=== PATIENT | female | born 1940 | race Caucasian/White ===

== ENCOUNTER 2020-06-20 07:41 | Observation (INO) | payer MEDICARE ==
[~2020-06-20] VITALS: Ht 157.5 cm; Wt 66.0 kg
[2020-06-20] MEDS ORDERED: ATOR20TA86 PO (07:46)
[2020-06-20] MEDS ORDERED: RIVA20TA PO (07:46)
[2020-06-20] MEDS ORDERED: ASPI-1111 PO (07:46)
[2020-06-20] MEDS ORDERED: LOSA50TA37 PO (07:46)
[2020-06-20 09:07] LABS: BASOPHILS % (AUTO) 0.2 % (0.0-2.0); EOSINOPHILS % (AUTO) 1.6 % (1.0-6.0); HEMATOCRIT 44.4 % (36-46); HEMOGLOBIN 14.9 g/dL (12.0-16.0); LYMPHOCYTES # (AUTO) 1.9 K/uL (1.0-4.8); LYMPHOCYTES % (AUTO) 28.4 % (22.0-44.0); MEAN CORPUSCULAR HGB CONC 33.5 G/dL (31.0-37.0); MEAN CORPUSCULAR VOLUME 95 fL (80-100); MONOCYTES # (AUTO) 0.6 K/uL (0.1-1.0); MONOCYTES % (AUTO) 9.5 % (2.0-9.0); NEUTROPHILS # (AUTO) 4.1 K/uL (1.8-7.7); NEUTROPHILS % (AUTO) 60.3 % (40.0-70.0); PLATELET COUNT (AUTO) 234 K/uL (150-450); RED BLOOD CELL COUNT(AUTO) 4.65 MIL/uL (4.00-5.20); RED CELL DISTRIBUTION WIDTH 13.5 % (11.5-14.5)
[2020-06-20 09:27] LABS: INR 1.1 (0.9-1.1); PROTHROMBIN TIME 11.9 SEC (9.4-11.6)
[2020-06-20 09:31] LABS: APPEARANCE,URINE CLEAR (CLEAR); BILIRUBIN,URINE NEGATIVE (NEGATIVE); GLUCOSE, URINE (UA) NEGATIVE (NEGATIVE); KETONES,URINE NEGATIVE (NEGATIVE); LEUKOCYTE ESTERASE ,URINE MODERATE (NEGATIVE); NITRATE,URINE NEGATIVE (NEGATIVE); OCCULT BLOOD,URINE NEGATIVE (NEGATIVE); PH,URINE 6.5 (5.0-8.0); PROTEIN,URINE NEGATIVE (NEGATIVE); UROBILINOGEN,URINE 0.2 mg/dL (<=1.0)
[2020-06-20 09:53] LABS: CALCIUM, TOTAL 9.3 mg/dL (8.8-10.5); CREATININE 0.94 mg/dL (0.60-1.30); POTASSIUM 4.2 mmol/L (3.5-5.1)
[2020-06-20 09:54] LABS: BACTERIA,URINE None Seen /HPF (None Seen); RBC,URINE None Seen /HPF (0-2); SQUAMOUS EPITHELIAL CELL,UR Moderate /LPF (None Seen)
[2020-06-20 09:59] LABS: ALBUMIN 3.8 g/dL (3.4-5.0); BILIRUBIN,TOTAL 0.7 mg/dL (0.1-1.0); TOTAL PROTEIN, SERUM 7.8 g/dL (6.4-8.2)
[2020-06-20] MEDS ORDERED: IOVERSOL 350 MG/ML 100 ML VIAL ONE (10:55)
[2020-06-20] MEDS ORDERED: SODIUM CHLORIDE 0.9% 100 ML ONE (10:56)
[2020-06-20] MEDS ORDERED: CefTRIAXone 1 GM/DEXTROSE 50 ML IV ONE (14:30)
[2020-06-20] MEDS ORDERED: 0.9% SODIUM CHLORIDE 10 ML SYRINGE IVP PRN (14:30)
[2020-06-20] MEDS ORDERED: ACETAMINOPHEN 325 MG TABLET PO PRN ×2 (14:30→19:15)
[2020-06-20 18:45] VITALS: BP 158/83
[2020-06-20] MEDS ORDERED: HYDROCODONE/ACETAMINOPHEN 5-325 MG TABLET PO PRN (19:15)
[2020-06-20] MEDS ORDERED: ALBUTEROL SULFATE 2.5 MG/0.5 ML NEB SOLUTION NEB PRN (19:15)
[2020-06-20] MEDS ORDERED: IPRATROPIUM BROMIDE 0.5 MG/2.5 ML NEB SOLUTION NEB PRN (19:15)
[2020-06-20] MEDS ORDERED: ONDANSETRON HCL 4 MG/2 ML VIAL IVP PRN (19:15)
[2020-06-20] MEDS ORDERED: CloNIDine HCL 0.1 MG TABLET PO PRN (19:45)
[2020-06-20] MEDS: LOSARTAN POTASSIUM 50 MG TABLET PO SCH (20:20)
[2020-06-20] MEDS ORDERED: RIVAROXABAN 20 MG TABLET PO SCH (20:30)
[2020-06-20] MEDS: RIVAROXABAN 15 MG TABLET PO SCH (21:28)
[2020-06-20] MEDS: DILTIAZEM HCL CD 180 MG ER CAPSULE PO SCH (21:28)
[2020-06-20 23:55] VITALS: BP 128/69
[2020-06-21 04:39] VITALS: BP 135/67
[2020-06-21 06:17] LABS: BASOPHILS % (AUTO) 0.2 % (0.0-2.0); EOSINOPHILS % (AUTO) 2.3 % (1.0-6.0); HEMATOCRIT 42.1 % (36-46); HEMOGLOBIN 14.1 g/dL (12.0-16.0); LYMPHOCYTES # (AUTO) 2.1 K/uL (1.0-4.8); LYMPHOCYTES % (AUTO) 31.7 % (22.0-44.0); MEAN CORPUSCULAR HEMOGLOBIN 32.1 pg (26.0-34.0); MEAN CORPUSCULAR HGB CONC 33.6 G/dL (31.0-37.0); MEAN CORPUSCULAR VOLUME 96 fL (80-100); MONOCYTES # (AUTO) 0.6 K/uL (0.1-1.0); MONOCYTES % (AUTO) 9.3 % (2.0-9.0); NEUTROPHILS # (AUTO) 3.7 K/uL (1.8-7.7); NEUTROPHILS % (AUTO) 56.5 % (40.0-70.0); PLATELET COUNT (AUTO) 221 K/uL (150-450); RED CELL DISTRIBUTION WIDTH 13.4 % (11.5-14.5)
[2020-06-21 06:46] LABS: ALANINE AMINOTRANSFERASE 27 U/L (12-78); ALBUMIN 3.3 g/dL (3.4-5.0); ALKALINE PHOSPHATASE 96 U/L (46-116); ANION GAP 9 mmol/L (8-16); ASPARTATE AMINOTRANSFERASE 23 U/L (15-37); BILIRUBIN,TOTAL 0.6 mg/dL (0.1-1.0); CALCIUM, TOTAL 8.9 mg/dL (8.8-10.5); CARBON DIOXIDE 27 mmol/L (22-29); CHLORIDE 104 mmol/L (98-107); CREATININE 0.86 mg/dL (0.60-1.30); GLUCOSE,RANDOM 108 mg/dL (70-110); POTASSIUM 3.7 mmol/L (3.5-5.1); SODIUM SERUM 140 mmol/L (136-145); UREA NITROGEN, BLOOD 14 mg/dL (7-18)
[2020-06-21 06:50] LABS: GLOMERULAR FILTR. RATE CALC > 60 mL/min (>60)
[2020-06-21 07:47] VITALS: BP 155/72
[2020-06-21] MEDS ORDERED: CefTRIAXone 1 GM/DEXTROSE 50 ML IV SCH (08:00)
[2020-06-21] MEDS: DILTIAZEM HCL CD 180 MG ER CAPSULE PO SCH (08:15)
[2020-06-21] MEDS: LOSARTAN POTASSIUM 50 MG TABLET PO SCH (08:15)
[2020-06-21] MEDS: RIVAROXABAN 15 MG TABLET PO SCH (08:15)
[2020-06-21] MEDS ORDERED: SODIUM CHLORIDE 0.9% 250 ML IV ONE (08:20)
[2020-06-21] MEDS ORDERED: ATORVASTATIN CALCIUM 20 MG TABLET PO SCH (09:00)
[2020-06-21] MEDS ORDERED: LOSARTAN POTASSIUM 50 MG TABLET PO SCH (09:00)
[2020-06-21] MEDS ORDERED: ASPIRIN 81 MG EC TABLET PO SCH (09:00)
[2020-06-21 11:35] VITALS: BP 140/63
[2020-06-21] MEDS ORDERED: CIPR250T6 PO (14:59)
[2020-06-22] MEDS ORDERED: RIVAROXABAN 15 MG TABLET PO SCH (18:00)
== END 2020-06-21 15:45 | disposition home or self-care (01) ==
LOC: EMS 07:48 → INTOOBSV 16:02 → 5S 16:02
PROVIDERS: ADMIT Internal Medicine; ATTEND Internal Medicine
DX: S50.12XA Contusion of left forearm, initial encounter (principal); N39.0 Urinary tract infection, site not specified; R55 Syncope and collapse; R42 Dizziness and giddiness; I48.91 Unspecified atrial fibrillation; I10 Essential (primary) hypertension; M19.90 Unspecified osteoarthritis, unspecified site; E78.5 Hyperlipidemia, unspecified; E78.00 Pure hypercholesterolemia, unspecified; W18.39XA Other fall on same level, initial encounter; Y93.89 Activity, other specified; Y92.098 Other place in other non-institutional residence as the place of occurrence of the external cause; Y99.8 Other external cause status
CPT/HCPCS: 36415 ×2; 70450; 71045; 71260; 73090; 80053 ×2; 81001; 82550; 83880; 84484 ×2; 85025 ×2; 85610; 85730; 87086; 93005 ×2; 96365; 96366; 99219; 99285; J0696 ×2; J7050 ×2; Q9967; G0378; 93366

== ENCOUNTER 2021-03-22 10:37 | Emergency (ER) | payer MEDICARE ==
[~2021-03-22] VITALS: Ht 162.6 cm; Wt 63.6 kg
[~2021-03-22 10:37] MED LIST: ASPI-1444 PO; ATOR20TA86 PO; CIPR250T6 PO; LOSA50TA37 PO; RIVA20TA PO
[2021-03-22] MEDS ORDERED: MORPHINE SULFATE 4 MG/ML SYRINGE IVP ONE (11:30)
[2021-03-22] MEDS ORDERED: ONDANSETRON HCL 4 MG/2 ML VIAL IVP ONE (11:30)
[2021-03-22] MEDS ORDERED: MORPHINE SULFATE 2 MG/ML SYRINGE IVP ONE (11:45)
[2021-03-22] MEDS ORDERED: LIDOCAINE 1% 10 ML VIAL IARTIC ONE (13:45)
[2021-03-22] MEDS ORDERED: ACETAMINOPHEN 325 MG TABLET PO ONE (13:45)
[2021-03-22 15:15] VITALS: BP 133/71
== END 2021-03-22 18:05 | disposition home or self-care (01) ==
LOC: EMS 11:32
DX: S52.592A Other fractures of lower end of left radius, initial encounter for closed fracture (principal); W17.89XA Other fall from one level to another, initial encounter; Y93.89 Activity, other specified; Y92.89 Other specified places as the place of occurrence of the external cause; Y99.8 Other external cause status
CPT/HCPCS: 25605; 73080; 73100; 73110; 96374; 96375; 99284; J2270; J2405; J3490